=== PATIENT | male | born 1965 | race Caucasian/White ===

== ENCOUNTER 2017-12-08 10:15 | Emergency (ER) | payer SELFPAY ==
[~2017-12-08] VITALS: Ht 175.3 cm; Wt 70.5 kg
[~2017-12-08 10:15] MED LIST: IBUPROFEN600 MG PO; MOTRIN IB200 MG PO; NOHOMEMEDS; NORCO 5/3251 TABLET PO; PERCOCET 5/31 TABLET PO
[2017-12-08] MEDS ORDERED: PERCOCET 5/31 TABLET PO (12:09)
[2017-12-08 12:47] VITALS: BP 127/92
== END 2017-12-08 12:47 | disposition home or self-care (01) ==
LOC: EME 10:15
PROC: 2W3QX1Z Immobilization of Right Lower Leg using Splint (ICD-10-PCS; principal; 2017-12-08)
DX: S82.831A Other fracture of upper and lower end of right fibula, initial encounter for closed fracture (principal); F17.200 Nicotine dependence, unspecified, uncomplicated; W10.9XXA Fall (on) (from) unspecified stairs and steps, initial encounter
CPT/HCPCS: 73610; 99281; 99284; J1885